=== PATIENT | female | born 1965 | race Caucasian/White ===

== ENCOUNTER 2022-04-13 07:29 | Emergency (ER) | payer OTHER ==
[2022-04-13] MEDS ORDERED: KETOROLAC TROMETHAMINE 30 MG/1 ML VIAL IM ONE (08:03)
[2022-04-13 08:08] VITALS: BP 137/69; PULSE 89; RESP 16; TEMP 98.1; BMI 38.0
[2022-04-13] MEDS ORDERED: KETOROLAC TROMETHAMINE 30 MG/1 ML VIAL ONE (08:08)
== END 2022-04-13 09:00 | disposition home or self-care (01) ==
LOC: JER 07:29 → JERFT 07:29
PROC: 3E0233Z Introduction of Anti-inflammatory into Muscle, Percutaneous Approach (ICD-10-PCS; principal; 2022-04-13)
DX: S89.92XA Unspecified injury of left lower leg, initial encounter (principal); W00.0XXA Fall on same level due to ice and snow, initial encounter; X50.0XXA Overexertion from strenuous movement or load, initial encounter
CPT/HCPCS: 73560-TC-LT-FY; 73562-TC-LT-FY; 73590-TC-LT-FY; 99285-25

== ENCOUNTER 2022-05-05 12:04 | Day surgery (SDC) | payer OTHER ==
[2022-04-27 13:18] VITALS: BMI 30.7
[2022-05-05] MEDS ORDERED: PROPOFOL 20 ML ONE (12:59)
[2022-05-05] MEDS ORDERED: MIDAZOLAM HCL 2 MG/2 ML SINGLE DOSE VIAL ONE (13:00)
[2022-05-05] MEDS ORDERED: SUCCINYLCHOLINE CHLORIDE 200 MG/10 ML SYRINGE ONE (13:00)
[2022-05-05] MEDS ORDERED: ONDANSETRON 4 MG/2 ML VIAL ONE ×3 (13:12→17:16)
[2022-05-05] MEDS ORDERED: BUPIVACAINE HCL/PF 2.5 MG/ML - 30 ML VIAL IJ ONE (13:53)
[2022-05-05] MEDS ORDERED: DEXAMETHASONE SOD PHOSPHATE/PF 10 MG/ML SDV ONE (13:53)
[2022-05-05] MEDS ORDERED: ceFAZolin SODIUM 1 GM VIAL ONE (14:25)
[2022-05-05] MEDS ORDERED: DEXAMETHASONE SOD PHOSPHATE 4 MG/1 ML VIAL ONE (14:35)
[2022-05-05] MEDS ORDERED: TRANEXAMIC ACID 1000 MG/10 ML VIAL ONE (14:44)
[2022-05-05] MEDS ORDERED: ACETAMINOPHEN INJECTION 100 ML IVPB ONE (16:11)
[2022-05-05] MEDS ORDERED: KETOROLAC TROMETHAMINE 30 MG/1 ML VIAL ONE (17:24)
[2022-05-05] MEDS ORDERED: ONDANSETRON 4 MG/2 ML VIAL IVPUSH PRN (17:36)
[2022-05-05] MEDS: diazePAM CARPU-JECT 10 MG/2 ML DISP.SYRIN IVPUSH ONE ×2 (17:54→20:40)
[2022-05-05] MEDS: HYDROmorphone HCl 2 MG/ML VIAL IVPB ONE ×2 (18:11→20:39)
[2022-05-05] MEDS: oxyCODONE HCL 5 MG TABLET PO PRN (18:53)
[2022-05-05] MEDS: LACTATED RINGERS SOLUTION 1,000 ML IV SCH (20:41)
[2022-05-06] MEDS: oxyCODONE HCL 5 MG TABLET PO PRN ×3 (00:28→15:43)
[2022-05-06] MEDS: CEFAZOLIN 1 GM in DEXTROSE 5%-WATER - 50 ML IVPB SCH ×2 (02:03→09:22)
[2022-05-06 06:47] VITALS: RESP 18
[2022-05-06] MEDS ORDERED: KETOROLAC TROMETHAMINE 30 MG/1 ML VIAL IVPUSH ONE (10:17)
[2022-05-06] MEDS ORDERED: ACETAMINOPHEN 1000 MG/100 ML BAG IVPB ONE (10:17)
[2022-05-06 14:38] VITALS: BP 113/64; PULSE 90; TEMP 98.6
[2022-05-06] MEDS: LACTATED RINGERS SOLUTION 1,000 ML IV SCH (17:07)
[2022-05-06] MEDS ORDERED: ASPIRIN 81 MG CHEWABLE TABLETS PO ONE (17:58)
== END 2022-05-06 17:25 | disposition home or self-care (01) ==
LOC: FASU 12:04 → FM/S 20:10 → FASU 05-06 17:25
PROVIDERS: ATTEND Orthopaedic Surgery Sports Medicine
PROC: 0SJD4ZZ Inspection of Left Knee Joint, Percutaneous Endoscopic Approach (ICD-10-PCS; 2022-05-05)
PROC: 0QSH04Z Reposition Left Tibia with Internal Fixation Device, Open Approach (ICD-10-PCS; principal; 2022-05-05 14:51)
DX: S82.142A Displaced bicondylar fracture of left tibia, initial encounter for closed fracture (principal); X58.XXXA Exposure to other specified factors, initial encounter; Y93.9 Activity, unspecified; Y92.9 Unspecified place or not applicable
CPT/HCPCS: 73590-TC-LT-FY; 87426; 94760; 97116-GP; 97162-GP; C1713

== ENCOUNTER 2022-06-28 19:04 | Emergency (ER) | payer OTHER ==
[2022-06-28 19:25] VITALS: BP 129/81; PULSE 71; RESP 18; TEMP 98.4; BMI 31.6
[2022-06-28] MEDS ORDERED: AMOX TR/POT CLAV 875MG/125MG TABLETS (FP) PO ONE (21:37)
[2022-06-28] MEDS ORDERED: AMOX TR/POT CLAV 875MG/125MG TABLETS (FP) ONE (21:45)
== END 2022-06-28 21:48 | disposition home or self-care (01) ==
LOC: FER 19:04
DX: L03.116 Cellulitis of left lower limb (principal)
CPT/HCPCS: 93971-TC; 99284-25

== ENCOUNTER 2024-06-10 05:22 | Day surgery (SDC) | payer OTHER ==
[2024-06-06 12:46] VITALS: BMI 30.2
[2024-06-10 11:45] VITALS: RESP 18
[2024-06-10] MEDS ORDERED: MIDAZOLAM HCL 2 MG/2 ML SINGLE DOSE VIAL ONE (12:47)
[2024-06-10] MEDS ORDERED: ONDANSETRON 4 MG/2 ML VIAL ONE (12:50)
[2024-06-10 15:14] VITALS: BP 118/70; PULSE 76; TEMP 98
[2024-06-10] MEDS ORDERED: ACETAMINOPHEN 325 MG TABLET (FP) ONE (15:57)
[2024-06-10] MEDS: ACETAMINOPHEN 325 MG TABLET (FP) PO STA (16:10)
== END 2024-06-10 16:21 | disposition home or self-care (01) ==
LOC: JASU-SURG 05:22
PROVIDERS: ATTEND Urology
PROC: 0TF4XZZ Fragmentation in Left Kidney Pelvis, External Approach (ICD-10-PCS; principal; 2024-06-10 13:30)
DX: N20.0 Calculus of kidney (principal)

== ENCOUNTER 2024-11-25 06:27 | Day surgery (SDC) | payer OTHER ==
[2024-11-22 10:28] VITALS: BMI 27.9
[2024-11-25] MEDS ORDERED: MIDAZOLAM HCL 2 MG/2 ML SINGLE DOSE VIAL ONE ×2 (11:28→12:02)
[2024-11-25 12:47] VITALS: BP 113/62; PULSE 86; RESP 18; TEMP 97.6
== END 2024-11-25 14:00 | disposition home or self-care (01) ==
LOC: JASU-SURG 06:27
PROVIDERS: ATTEND Urology
PROC: 0TF4XZZ Fragmentation in Left Kidney Pelvis, External Approach (ICD-10-PCS; principal; 2024-11-25 12:15)
DX: N20.0 Calculus of kidney (principal)